=== PATIENT | female | born 1990 | race Caucasian/White ===

== ENCOUNTER → 2023-03-31 16:56 | Outpatient (CLI) | payer BC, SELFPAY | PROVIDERS: Visit Provider Nurse Practitioner Family | DX: R10.9 Unspecified abdominal pain (principal) | CPT/HCPCS: 87086 ==

== ENCOUNTER 2023-03-31 17:08 | Emergency (ER) | payer BC, SELFPAY ==
[2023-03-31] VITALS (7 sets, daily range): BP systolic 129–142; BP diastolic 81–82; PULSE 99–109; RESP 16–18; TEMP 37.1–37.2; O2SAT 96–99; BMI 31.4
--- NOTE | 2023-03-31 17:10 | ED_ITS ---
HPI - Back Pain/Injury <Jorge Mayorga PA-C - Last Filed: 03/31/23 19:18> General Chief Complaint: Urogenital-Female Stated Complaint: sent by wic/evelio bladder infection Time Seen by Provider: 03/31/23 17:10 History of Present Illness HPI Narrative: This is a 32-year-old female presents to the emergency department due to lower abdominal pain as well as bilateral flank pain for the last 3 days. She also reports noticing hematuria yesterday. She states that she is had kidney stones about 5 years ago. Denies any dysuria, urinary frequency, vaginal discharge, or vaginal bleeding. She denies any significant chest pain shortness of breath. States she is had some chills. Related Data Home Medications Medication Instructions Recorded Confirmed segesterone acet 0.15 mg-ethinyl 1 vag ring vaginal Q4W 03/31/23 03/31/23 estradiol 0.013 mg/24 hr vaginal ring (Annovera) Previous Rx's Medication Instructions Recorded ondansetron 4 mg disintegrating 4 mg PO Q8H PRN nausea and 03/31/23 tablet vomiting #20 tabs tamsulosin 0.4 mg capsule 0.4 mg PO DAILY #14 caps 03/31/23 Allergies Allergy/AdvReac Type Severity Reaction Status Date / Time No Known Drug Allergies Allergy Verified 03/31/23 17:17 Review of Systems <Jorge Mayorga PA-C - Last Filed: 03/31/23 19:18> Review of Systems Narrative: GENERAL: Reports chills, denies fatigue, malaise, fever, sweats. HEENT: Denies sinus pain, ear pain, sore throat, difficulty swallowing, dizziness. RESPIRATORY: Denies dyspnea, cough, wheezing, hemoptysis, sputum. CARDIOVASCULAR: Denies chest pain, palpitations, orthopnea, edema, GASTROINTESTINAL: Reports suprapubic abdominal pain, Denies nausea, vomiting, diarrhea, constipation, melena. : Reports hematuria, bilateral flank pain, Denies dysuria, frequency, incontinence, , urinary retention. MUSCULOSKELETAL: denies weakness, joint pain, or bony pain SKIN: Denies rash, skin lesions, or other NEUROLOGIC: Denies weakness, headache, numbness, change in speech, confusion, seizures, incoordination. PSYCHIATRIC: No concerning psychosocial issues. 12 point review of systems is negative except for those stated above Patient History <Jorge Mayorga PA-C - Last Filed: 03/31/23 19:18> Social History Smoking Status: Never smoker Smoking Status: Never smoker Exam <Jorge Mayorga PA-C - Last Filed: 03/31/23 19:18> Narrative Exam Narrative: GENERAL: Well-developed patient, in mild distress. HEAD: Atraumatic. Normocephalic. EYES: Pupils equal round and reactive. Extraocular motions intact. No scleral icterus. No injection or drainage. ENT: Nose without bleeding, purulent drainage. Throat without erythema, tonsillar hypertrophy or exudate. Airway patent. NECK: Trachea midline. Non tender CARDIOVASCULAR: Regular rate and rhythm without murmurs, gallops, or rubs. RESPIRATORY: Clear to auscultation. Breath sounds equal bilaterally. No wheezes, rales, or rhonchi. GASTROINTESTINAL: Mild suprapubic tenderness to palpation, Abdomen soft, nondistended. EXTREMITIES: No edema or joint tenderness. BACK: Nontender without deformity or crepitance. No flank tenderness. NEURO: AOx3. SKIN: No rash or erythema of visible areas Initial Vital Signs Initial Vital Signs: Vital Signs Pulse Oximetry 97 03/31/23 17:11 <Laly Castro MD - Last Filed: 04/12/23 18:39> Initial Vital Signs Initial Vital Signs: Vital Signs Pulse Oximetry 97 03/31/23 17:11 Course <Jorge Mayorga PA-C - Last Filed: 03/31/23 19:18> Orders Ordered: Discontinued Medications Sodium Chloride (Normal Saline 0.9%) 1,000 mls @ 1,000 mls/hr IV BOLUS ONE Stop: 03/31/23 18:17 Last Admin: 03/31/23 17:48 Dose: Not Given Documented By: RB Sodium Chloride (Normal Saline 0.9%) 1,986 mls @ 662 mls/hr 30 ml/kg infuse over 3 hr (1986 ml) IV NOW ONE Stop: 03/31/23 20:38 Last Infusion: 03/31/23 19:20 Dose: 0 mls/hr Documented By: Infusion: 03/31/23 18:51 Dose: 999 mls/hr Documented By: Infusion: 03/31/23 18:29 Dose: 662 mls/hr Documented By: Infusion: 03/31/23 18:14 Dose: 0 mls/hr Documented By: Admin: 03/31/23 17:54 Dose: 662 mls/hr Documented By: ANABELLA Ceftriaxone Sodium 2,000 mg/ (Sodium Chloride) 100 mls @ 200 mls/hr IV NOW ONE Stop: 03/31/23 17:40 Last Infusion: 03/31/23 18:46 Dose: Infused Documented By: Infusion: 03/31/23 18:29 Dose: 200 mls/hr Documented By: Infusion: 03/31/23 18:14 Dose: 0 mls/hr Documented By: Admin: 03/31/23 17:54 Dose: 200 mls/hr Documented By: ANABELLA Ketorolac Tromethamine (Ketorolac 30 Mg/Ml Vial) 15 mg IV NOW ONE Stop: 03/31/23 18:47 Last Admin: 03/31/23 18:50 Dose: 15 mg Documented By: ROSENDO Ondansetron HCl (Ondansetron 4 Mg/2 Ml Inj) 4 mg IV NOW ONE Stop: 03/31/23 18:47 Last Admin: 03/31/23 18:50 Dose: 4 mg Documented By: ROSENDO Vital Signs Vital signs: Vital Signs - 8 hr 03/31/23 17:11 03/31/23 17:12 03/31/23 17:12 Temperature Pulse Rate 108 H Respiratory Rate Blood Pressure 142/81 H Pulse Oximetry 97 97 Oxygen Delivery Method 03/31/23 17:15 03/31/23 17:30 03/31/23 18:00 Temperature 98.9 F Pulse Rate 109 H 99 H 103 H Respiratory Rate 18 Blood Pressure 142/81 H Pulse Oximetry 97 98 99 Oxygen Delivery Method Room Air Room Air Room Air 03/31/23 18:30 03/31/23 18:30 Temperature Pulse Rate 105 H Respiratory Rate Blood Pressure 131/82 Pulse Oximetry 99 Oxygen Delivery Method Room Air <Laly Castro MD - Last Filed: 04/12/23 18:39> Orders Ordered: Discontinued Medications Sodium Chloride (Normal Saline 0.9%) 1,000 mls @ 1,000 mls/hr IV BOLUS ONE Stop: 03/31/23 18:17 Last Admin: 03/31/23 17:48 Dose: Not Given Documented By: RB Sodium Chloride (Normal Saline 0.9%) 1,986 mls @ 662 mls/hr 30 ml/kg infuse over 3 hr (1986 ml) IV NOW ONE Stop: 03/31/23 20:38 Last Infusion: 03/31/23 19:20 Dose: 0 mls/hr Documented By: Infusion: 03/31/23 18:51 Dose: 999 mls/hr Documented By: Infusion: 03/31/23 18:29 Dose: 662 mls/hr Documented By: Infusion: 03/31/23 18:14 Dose: 0 mls/hr Documented By: Admin: 03/31/23 17:54 Dose: 662 mls/hr Documented By: ANABELLA Ceftriaxone Sodium 2,000 mg/ (Sodium Chloride) 100 mls @ 200 mls/hr IV NOW ONE Stop: 03/31/23 17:40 Last Infusion: 03/31/23 18:46 Dose: Infused Documented By: Infusion: 03/31/23 18:29 Dose: 200 mls/hr Documented By: Infusion: 03/31/23 18:14 Dose: 0 mls/hr Documented By: Admin: 03/31/23 17:54 Dose: 200 mls/hr Documented By: ANABELLA Ketorolac Tromethamine (Ketorolac 30 Mg/Ml Vial) 15 mg IV NOW ONE Stop: 03/31/23 18:47 Last Admin: 03/31/23 18:50 Dose: 15 mg Documented By: ROSENDO Ondansetron HCl (Ondansetron 4 Mg/2 Ml Inj) 4 mg IV NOW ONE Stop: 03/31/23 18:47 Last Admin: 03/31/23 18:50 Dose: 4 mg Documented By: ROSENDO Vital Signs Vital signs: Vital Signs - 8 hr 03/31/23 17:11 03/31/23 17:12 03/31/23 17:12 Temperature Pulse Rate 108 H Respiratory Rate Blood Pressure 142/81 H Pulse Oximetry 97 97 Oxygen Delivery Method 03/31/23 17:15 03/31/23 17:30 03/31/23 18:00 Temperature 98.9 F Pulse Rate 109 H 99 H 103 H Respiratory Rate 18 Blood Pressure 142/81 H Pulse Oximetry 97 98 99 Oxygen Delivery Method Room Air Room Air Room Air 03/31/23 18:30 03/31/23 18:30 Temperature Pulse Rate 105 H Respiratory Rate Blood Pressure 131/82 Pulse Oximetry 99 Oxygen Delivery Method Room Air MDM - Back Pain/Injury <Jorge Mayorga PA-C - Last Filed: 03/31/23 19:18> Lab Data 03/31/23 17:15 03/31/23 17:15 Labs: Lab Results 03/31/23 Range/Units 17:15 WBC 14.5 H (4.5-11.0) X10^3/uL RBC 4.56 (4.0-5.2) X10^6/uL Hgb 13.3 (12.0-16.0) g/dL Hct 38.6 (36-46) % MCV 84.6 (80-100) fL MCH 29.2 (26-34) PG MCHC 34.5 (30-36) % RDW 12.8 (11.6-14.8) % Plt Count 284 (150-400) X10^3/uL Neut % (Auto) 81.4 H (50-75) % Lymph % (Auto) 10.8 L (25-40) % Island % (Auto) 6.8 (3-14) % Eos % (Auto) 0.5 L (2-4) % Baso % (Auto) 0.5 (0-2) % Neut # (Auto) 93800 H (8109-2628) /uL Lymph # (Auto) 1600 (0246-9411) /uL Island # (Auto) 1000 H (0-900) /uL Eos # (Auto) 100 (0-450) /uL Baso # (Auto) 100 (0-100) /uL Sodium 135 L (137-145) mmol/L Potassium 3.6 (3.4-5.1) mmol/L Chloride 102 (98-107) mmol/L Carbon Dioxide 24 (22-32) mmol/L BUN 13 (7-17) mg/dL Creatinine 0.73 (0.52-1.04) mg/dL Estimated GFR > 60 (>60) mL/min BUN/Creatinine Ratio 17.8 (6-22) Glucose 102 H (70-100) mg/dL Calcium 9.7 (8.4-10.2) mg/dL Total Bilirubin 0.6 (0.2-1.3) mg/dL AST 27 (14-36) IU/L ALT 21 (<35) IU/L Alkaline Phosphatase 87 (38-126) U/L Total Protein 7.5 (6.3-8.2) g/dL Albumin 4.4 (3.5-5.0) g/dL Globulin 3.1 (1.7-4.1) g/dL Albumin/Globulin Ratio 1.4 (1.0-2.8) Imaging Data CT scan - abdomen/pelvis: Radiologist's Impression: [address] [address] [address] Scan Report Signed Patient: Kalyani Mcclelland MR#: [id number] : 1990 Acct:[id number] Age/Sex: 32 / F Date of Service: 03/31/23 Loc: ED Accession Number: [id number] Procedure: CT abdomen pelvis w con Ordering Provider: Jorge Mayorga P.A-C PROCEDURE: CT ABDOMEN PELVIS W CON INDICATIONS: Suprapubic and bilat flank pain TECHNIQUE: After the administration of intravenous contrast, axial sections acquired from the lung bases to the pubic symphysis. Coronal and sagittal reformats were performed. For radiation dose reduction, the following was used: automated exposure control, adjustment of mA and/or kV according to patient size. COMPARISON: None. FINDINGS: Image quality: Excellent. Lung bases: Unremarkable. Heart: No significant findings. ABDOMEN: Liver: Unremarkable. Gallbladder: Unremarkable. Biliary ducts: Unremarkable. Pancreas: Unremarkable. Spleen: Unremarkable. Adrenal Glands: Unremarkable. Kidneys and Ureters: 2 calculi are seen in the left mid ureter at the level of the pelvic brim measuring approximately 5 mm each (500-700 Hounsfield units). There is moderate left hydroureteronephrosis. Multiple additional nonobstructing calculi are seen bilaterally measuring up to 6 mm on the left (420 Hounsfield units) and up to 4 mm on the right. Stomach and Bowel: Stomach, small bowel loops, and colon are unremarkable. Normal appendix. Peritoneum: No abnormal intraperitoneal fluid. No free air. Ventral Wall: No hernias. Abdominal Nodes: No retroperitoneal or mesenteric adenopathy by size criteria. Vessels: Aorta and inferior vena cava are normal in size. PELVIS: Pelvic Organs: Unremarkable. Bladder: Unremarkable. Pelvic Nodes: No enlarged lymph nodes. Miscellaneous: No hernias are seen. Bones: Unremarkable. IMPRESSION: 1. Two left mid ureteral calculi are seen at the level of the pelvic brim, each measuring approximately 5 mm, with moderate left hydroureteronephrosis. 2. Additional nonobstructing bilateral renal calculi. Approved by: Francisco Javier Raza M.D. on 03/31/2023 at 19:09 MDM Narrative Medical decision making narrative: MDM * differential diagnosis includes but not limited to UTI, pyelonephritis, kidney stone, gonorrhea, chlamydia * Prior records reviewed: Patient was seen in the walk-in clinic just prior to arrival due to flank pain for a week, abdominal pain for 2 days, hematuria, history of kidney stones 5 years ago. Urinalysis was positive for leukocytes and blood. * My lab interpretation: Leukocytosis of 14.5. Very mild hyponatremia but showing no symptoms. [facility], urine sent for culture. * My imgaing interpretation: CT abdomen and pelvis showed the 2 5 mm stones as noted above. * Clinical Decision Rules/Scores evaluated: None * Independent discussions with: None ED Course: This is a 32-year-old female presents to the emergency department due to a suspected complicated UTI. White count of 14 point as well mild abdominal pain. She was tachycardic with a white count suspected source of infection due to positive UA and sepsis fluids given. Blood cultures ordered. Rocephin given. Patient will be discharged with oral cefpodoxime to treat suspected UTI. Patient's CT came back positive for to 5 mm stones. Expect should pass on their own without needing Urology. Recommended she speak with the primary care provider for referral to Urology in the area in the event she was unable to pass them. Shared decision-making utilized and patient's strongly declined narcotics. Says she will control pain with ibuprofen and Tylenol. Shared Decision Making: Discussed plan with the patient who is comfortable with the plan. Social Considerations: None Disposition: Discharged home <Laly Castro MD - Last Filed: 04/12/23 18:39> Lab Data Labs: Lab Results 03/31/23 Range/Units 17:15 WBC 14.5 H (4.5-11.0) X10^3/uL RBC 4.56 (4.0-5.2) X10^6/uL Hgb 13.3 (12.0-16.0) g/dL Hct 38.6 (36-46) % MCV 84.6 (80-100) fL MCH 29.2 (26-34) PG MCHC 34.5 (30-36) % RDW 12.8 (11.6-14.8) % Plt Count 284 (150-400) X10^3/uL Neut % (Auto) 81.4 H (50-75) % Lymph % (Auto) 10.8 L (25-40) % Island % (Auto) 6.8 (3-14) % Eos % (Auto) 0.5 L (2-4) % Baso % (Auto) 0.5 (0-2) % Neut # (Auto) 79527 H (4113-4197) /uL Lymph # (Auto) 1600 (9391-2376) /uL Island # (Auto) 1000 H (0-900) /uL Eos # (Auto) 100 (0-450) /uL Baso # (Auto) 100 (0-100) /uL Sodium 135 L (137-145) mmol/L Potassium 3.6 (3.4-5.1) mmol/L Chloride 102 (98-107) mmol/L Carbon Dioxide 24 (22-32) mmol/L BUN 13 (7-17) mg/dL Creatinine 0.73 (0.52-1.04) mg/dL Estimated GFR > 60 (>60) mL/min BUN/Creatinine Ratio 17.8 (6-22) Glucose 102 H (70-100) mg/dL Calcium 9.7 (8.4-10.2) mg/dL Total Bilirubin 0.6 (0.2-1.3) mg/dL AST 27 (14-36) IU/L ALT 21 (<35) IU/L Alkaline Phosphatase 87 (38-126) U/L Total Protein 7.5 (6.3-8.2) g/dL Albumin 4.4 (3.5-5.0) g/dL Globulin 3.1 (1.7-4.1) g/dL Albumin/Globulin Ratio 1.4 (1.0-2.8) Discharge Plan Departure Patient Disposition: Home Clinical Impression: Complicated urinary tract infection, Kidney stone Instructions: DI for Kidney Stones, DI for Urinary Tract Infection (UTI) Activity Restrictions/Additional Instructions: Thank you for coming to the [facility] Emergency Department today. As we discussed we will treat for UTI. Please take The oral antibiotics as prescribed. Your CT also showed evidence of 2 5 mm stones on the left side. Please take the medications to help you urinate and drink plenty of fluids. I recommend ibuprofen and Tylenol for the pain. I hope you feel better soon. Please follow up with your primary care provider within a week if your symptoms continue. If you do not have a primary care provider please contact the [facility] Resource line at [phone]. They will ask some questions about your medical history and help you get set up with a provider in the community. Prescriptions: New ondansetron 4 mg tablet,disintegrating 4 mg PO Q8H PRN (Reason: nausea and vomiting) Qty: 20 0RF tamsulosin 0.4 mg capsule 0.4 mg PO DAILY Qty: 14 0RF No Action Annovera 0.15-0.013 mg/24 hour ring 1 vag ring vaginal Q4W Rx Instructions: leave in place for 3 weeks of a 4-week cycle Referrals: Miscellaneous,Doctor, [Primary Care Provider] - Stand Alone Forms: Patient Portal/API ED Sign-out <Laly Castro MD - Last Filed: 04/12/23 18:39> Cosign ED Attending Lucaature Attestation: I did not see this patient. I was available all times for consultation.
--- NOTE | 2023-03-31 17:18 | DI.CT.S_ITS ---
PROCEDURE: CT ABDOMEN PELVIS W CON INDICATIONS: Suprapubic and bilat flank pain TECHNIQUE: After the administration of intravenous contrast, axial sections acquired from the lung bases to the pubic symphysis. Coronal and sagittal reformats were performed. For radiation dose reduction, the following was used: automated exposure control, adjustment of mA and/or kV according to patient size. COMPARISON: None. FINDINGS: Image quality: Excellent. Lung bases: Unremarkable. Heart: No significant findings. ABDOMEN: Liver: Unremarkable. Gallbladder: Unremarkable. Biliary ducts: Unremarkable. Pancreas: Unremarkable. Spleen: Unremarkable. Adrenal Glands: Unremarkable. Kidneys and Ureters: 2 calculi are seen in the left mid ureter at the level of the pelvic brim measuring approximately 5 mm each (500-700 Hounsfield units). There is moderate left hydroureteronephrosis. Multiple additional nonobstructing calculi are seen bilaterally measuring up to 6 mm on the left (420 Hounsfield units) and up to 4 mm on the right. Stomach and Bowel: Stomach, small bowel loops, and colon are unremarkable. Normal appendix. Peritoneum: No abnormal intraperitoneal fluid. No free air. Ventral Wall: No hernias. Abdominal Nodes: No retroperitoneal or mesenteric adenopathy by size criteria. Vessels: Aorta and inferior vena cava are normal in size. PELVIS: Pelvic Organs: Unremarkable. Bladder: Unremarkable. Pelvic Nodes: No enlarged lymph nodes. Miscellaneous: No hernias are seen. Bones: Unremarkable. IMPRESSION: 1. Two left mid ureteral calculi are seen at the level of the pelvic brim, each measuring approximately 5 mm, with moderate left hydroureteronephrosis. 2. Additional nonobstructing bilateral renal calculi. Approved by: Francisco Javier Raza M.D. on 03/31/2023 at 19:09
[2023-03-31 17:32] LABS: Add Manual Diff / Slide Review NO; Basophils Absolute Auto 100 /uL (0-100); Basophils Percent Auto 0.5 % (0-2); Eosinophils Absolute Auto 100 /uL (0-450); Eosinophils Percent Auto 0.5 % (2-4); Hematocrit 38.6 % (36-46); Hemoglobin 13.3 g/dL (12.0-16.0); Lymphocytes Absolute Auto 1600 /uL (1100-4500); Lymphocytes Percent Auto 10.8 % (25-40); Mean Corpuscular HGB Conc 34.5 % (30-36); Mean Corpuscular Hemoglobin 29.2 PG (26-34); Mean Corpuscular Volume 84.6 fL (80-100); Monocytes Absolute Auto 1000 /uL (0-900); Monocytes Percent Auto 6.8 % (3-14); Neutrophils Absolute Auto 11800 /uL (1500-7000); Neutrophils Percent Auto 81.4 % (50-75); Platelet Count 284 X10^3/uL (150-400); Red Blood Cell Count 4.56 X10^6/uL (4.0-5.2); Red Cell Distribution Width 12.8 % (11.6-14.8); White Blood Cell Count 14.5 X10^3/uL (4.5-11.0)
[2023-03-31 17:35] LABS: Alanine Aminotransferase 21 IU/L (<35); Albumin 4.4 g/dL (3.5-5.0); Albumin Globulin Ratio 1.4 (1.0-2.8); Alkaline Phosphatase 87 U/L (38-126); Aspartate Aminotransferase 27 IU/L (14-36); BUN Creatinine Ratio 17.8 (6-22); Bilirubin Total 0.6 mg/dL (0.2-1.3); Blood Urea Nitrogen 13 mg/dL (7-17); Calcium 9.7 mg/dL (8.4-10.2); Carbon Dioxide 24 mmol/L (22-32); Chloride 102 mmol/L (98-107); Estimated Glomerular Filt Rate > 60 mL/min (>60); Globulin 3.1 g/dL (1.7-4.1); Glucose 102 mg/dL (70-100); HEMOLYSIS < 15 (0-50); Potassium 3.6 mmol/L (3.4-5.1); Sodium 135 mmol/L (137-145); Total Protein 7.5 g/dL (6.3-8.2)
[2023-03-31] MEDS: SODIUM CHLORIDE 0.9% 1,986 ML 662 ML IV (17:54)
[2023-03-31] MEDS: cefTRIAXone 2,000 MG in SODIUM CHLORIDE 0.9% 100 ML 200 MG IV (17:54)
--- NOTE | 2023-03-31 18:09 | PC.NURSE ---
Pt has a history of kidney stones 5 years ago which were removed under procedure. She states flomax did not help at that time. Pt denies nausea, frequency, burning, or difficulty urinating. She has had flank pain and abdominal pain the past 3 days with subjective chills at home.
[2023-03-31] MEDS: KETOROLAC 30 MG/ML VIAL 15 MG IV (18:50)
[2023-03-31] MEDS: ONDANSETRON 4 MG/2 ML INJ IV (18:50)
== END 2023-03-31 19:26 | disposition home or self-care (01) ==
PROVIDERS: Emergency Provider Physician Assistant Medical
DX: N20.0 Calculus of kidney (principal); N39.0 Urinary tract infection, site not specified; R31.9 Hematuria, unspecified; R00.0 Tachycardia, unspecified; Z87.442 Personal history of urinary calculi; R10.9 Unspecified abdominal pain
CPT/HCPCS: 36415; 74177; 80053; 85025; 87040; 87086; 96365; 96375; 99284; J0696; J1885; J2405; Q9967